=== PATIENT | male | born 2000 | race African-American/Black ===

== ENCOUNTER 2023-11-26 15:50 | Emergency (ER) | payer BC ==
[2023-11-26] MEDS ORDERED: Sterile Water 10 ML ONE (16:53)
[2023-11-26] MEDS ORDERED: cefTRIAXone (ROCEPHIN) 500 MG VIAL ONE (16:54)
[2023-11-26] MEDS ORDERED: Doxycycline 100 MG CAP PO SCH (17:15)
[2023-11-27 14:14] LABS: Chlam.trachomatis by PCR,Urine DETECTED (NotDetected); GC N.gonorrhoeae PCR,UrineVOID Not Detected (NotDetected)
== END 2023-11-26 17:48 | disposition home or self-care (01) ==
LOC: CSHERS 15:50
DX: Z20.2 Contact with and (suspected) exposure to infections with a predominantly sexual mode of transmission (principal)
CPT/HCPCS: 87491; 87591; 96372; 99283; J0696